=== PATIENT | female | born 1950 | race Caucasian/White ===

== ENCOUNTER 2023-05-21 08:36 | Emergency (ER) | payer MEDICARE, SELFPAY ==
[2023-05-21 08:55] VITALS: BP 134/90; PULSE 73; RESP 16; TEMP 36.2; O2SAT 97
[2023-05-21 08:59] VITALS: BP 134/90; PULSE 73; RESP 16; TEMP 36.2; O2SAT 97
--- NOTE | 2023-05-21 09:17 | ED.FEMALEGU ---
HPI - Female Genitourinary General Chief complaint: Urogenital-Female Stated complaint: Ear Problem/Dizziness/Urinary Problem Source: patient and RN notes reviewed Mode of arrival: ambulatory Limitations: no limitations History of Present Illness HPI Narrative: 73-year-old female presented for 2 complaints. First, endorses dizziness with room spinning sensation when turning head side to side. She states for about 3 days ago she started with left ear pain, which has resolved. Dizziness is worse when lying on the left side. Endorses mild nasal congestion and headache. Denies headache, vision changes, nausea, vomiting, fevers or chills. Denies history of vertigo. Patient also reports burning with urination, frequency, and pressure up to the mid abdomen with urination. Onset 10 days. Endorses occasional right flank pain that is now feeling better. Denies hematuria, nausea, vomiting, diarrhea, fevers or chills. She took azo. Related Data Home Medications Medication Instructions Recorded Confirmed fluoxetine 20 mg capsule 20 mg PO DAILY 05/21/23 05/21/23 lisinopril 20 mg tablet 20 mg PO DAILY 05/21/23 05/21/23 pantoprazole 40 mg tablet,delayed 40 mg PO DAILY 05/21/23 05/21/23 release Allergies Allergy/AdvReac Type Severity Reaction Status Date / Time naproxen Allergy Intermediate Blister Verified 05/21/23 09:30 Review of Systems Review of Systems: CONSTITUTIONAL: Denies body aches, fever, chills, or sweats. CARDIOVASCULAR: Denies chest pain, palpitations, or edema. RESPIRATORY: Denies cough or dyspnea. GASTROINTESTINAL: Denies abdominal pain, nausea, vomiting, or diarrhea. GENITOURINARY: Reports dysuria, frequency, urgency, denies hematuria, flank pain SKIN: Denies rash, itching, or wounds. MUSCULOSKELETAL: Denies back pain or myalgia. NEURO: reports dizziness, denies headache or paresthesia [facility] Past Medical History Medical History (Updated 05/21/23 @ 10:30 by Ginny Barajas APRN) Hypertension Comments At time of signature, I have reviewed and agree with nursing past medical, surgical, social and family history unless otherwise noted. Please see nursing chart for further information. There is no relevant family history pertinent to the presenting complaint Exam Narrative: GENERAL: Well-appearing and in no acute distress. HEAD: Normocephalic EYES: EOMI. . ENT: Mucous membranes pink and moist. TMs with normal light reflex bilaterally. NECK: Normal AROM. Supple. CHEST: No respiratory distress. Clear to auscultation. HEART: Regular rate and rhythm. ABDOMEN: Soft, nontender, nondistended, normal active bowel sounds. No CVA tenderness MUSCULOSKELETAL: No bony tenderness. SKIN: Warm, dry, no rash. NEURO: No focal deficits. Alert and oriented x3. Gait steady. PSYCH: Normal affect. Course Course Emergency Course: Patient is aware of diagnosis, understands and agrees to treatment plan. Anticipatory guidance given. Patient agrees to follow-up as directed and is aware of reasons to seek care at the emergency department. Portions of this record may have been created with voice recognition software Level of Care: Express Care Visit Vital Signs Vital signs: Vital Signs Temperature 97.2 F L 05/21/23 08:55 Pulse Rate 73 05/21/23 08:55 Respiratory Rate 16 05/21/23 08:55 Blood Pressure 134/90 05/21/23 08:55 Pulse Oximetry 97 05/21/23 08:55 Oxygen Delivery Room Air 05/21/23 08:55 Temperature 97.2 F L 05/21/23 08:59 Pulse Rate 73 05/21/23 08:59 Respiratory Rate 16 05/21/23 08:59 Blood Pressure 134/90 05/21/23 08:59 Pulse Oximetry 97 05/21/23 08:59 Oxygen Delivery Room Air 05/21/23 08:59 Reviewed MDM - Female Genitourinary MDM Narrative Medical decision making narrative: Discussed physical exam findings c/w BPPV and UTI. Reviewed particle repositioning maneuvers, declines while in clinic. Advised supportive measures and signs/sympto
== END 2023-05-21 09:35 | disposition home or self-care (01) ==
PROVIDERS: Emergency Provider Nurse Practitioner Family; PCP Family Medicine
DX: N39.0 Urinary tract infection, site not specified (principal); B96.20 Unspecified Escherichia coli [E. coli] as the cause of diseases classified elsewhere; H81.10 Benign paroxysmal vertigo, unspecified ear; I10 Essential (primary) hypertension
CPT/HCPCS: 81003; 87077; 87086; 87186; 99213; G0463